=== PATIENT | female | born 1985 | race African-American/Black ===

== ENCOUNTER 2019-08-12 11:35 | Emergency (ER) | payer OTHER ==
[~2019-08-12] VITALS: Ht 152.4 cm; Wt 86.6 kg
[2019-08-12] MEDS ORDERED: ZITHROMAX500 MG PO (14:35)
== END 2019-08-12 16:15 | disposition home or self-care (01) ==
LOC: ER 11:35
DX: R05 Cough (principal); B96.0 Mycoplasma pneumoniae [M. pneumoniae] as the cause of diseases classified elsewhere